=== PATIENT | male | born 1980 | race Hispanic/Latino ===

== ENCOUNTER → 2020-01-11 | Outpatient (CLI) | payer OTHER ==
[~2020-01-11] MED LIST: ALBUTEROL SULFATE 0.083% 2.5 MG/3 ML INH IH ONE
== END | disposition home or self-care (01) ==
LOC: RESP 08:49
PROVIDERS: ATTEND Orthopaedic Surgery
DX: J45.998 Other asthma (principal)
CPT/HCPCS: 94060